=== PATIENT | female | born 1975 | race Caucasian/White ===

== ENCOUNTER 2016-08-15 10:19 | Outpatient (CLI) | payer OTHER ==
--- NOTE | 2016-08-15 11:08 | DIAGNOSTIC IMAGING REPORT ---
PROCEDURE: CT THORAX WITHOUT CONTRAST INDICATION: Left anterior chest wall trauma. TECHNIQUE: Noncontrast axial images were obtained of the chest with coronal and sagittal reformations. COMPARISON: None. FINDINGS: Nondisplaced anterior left fifth rib fracture. Lungs are clear without pulmonary contusion or pneumothorax. No effusion. There is no adenopathy. Normal mediastinum without hematoma. Heart size is normal. No pericardial effusion. Mild degenerative changes of the spine. Visualized upper abdomen is unremarkable. IMPRESSION: 1. Left anterior fifth rib nondisplaced fracture.
== END 2016-08-15 23:00 ==
LOC: CT SRH 10:19
DX: S22.32XA Fracture of one rib, left side, initial encounter for closed fracture (principal)